=== PATIENT | female | born 1955 | race Caucasian/White ===

== ENCOUNTER 2017-08-18 10:06 | Inpatient (IN) ==
[2017-08-12 15:21] LABS: Basophils # (Auto) 0.1 K/mcL (0.0-0.3); Basophils % (Auto) 0.5 % (0.0-2.0); Eosinophils # (Auto) 0.2 K/mcL (0.0-0.7); Eosinophils % (Auto) 1.8 % (0.0-7.0); Granulocytes % (Auto) 65.1 % (38.0-78.0); Lymphocytes # (Auto) 2.6 K/mcL (1.5-4.8); Lymphocytes % (Auto) 23.6 % (15.5-49.0); Mean Cell Volume 98.9 fL (80.0-100.0); Mean Corpuscular HGB Conc 34.2 g/dL (31.0-36.0); Mean Corpuscular Hemoglobin 33.8 pg (26.0-34.0); Platelet Count 275 K/mcL (140-440); RBC 4.44 M/mcL (4.00-5.20); Red Cell Distribution Width 13.2 % (11.5-14.5)
[2017-08-12 15:21] LABS: Appearance,Urine CLEAR; Bilirubin,Urine NEG (NEG); Color,Urine YELLOW; Glucose,Urine (UA) NEGATIVE (NEG); Leukocyte Esterase,Urine NEG /uL (NEG); Nitrate,Urine NEG (NEG); Protein,Urine NEG (NEG); Specific Gravity,Urine 1.015 (1.000-1.035); Urine Blood NEG mg/dL (<0.03); Urobilinogen,Urine NEG (NEG)
[2017-08-12 16:19] LABS: Blood Urea Nitrogen 10 mg/dl (6-20)
[~2017-08-18 10:06] MED LIST: 0.9 % SODIUM CHLORIDE 250 ML IV SCH; CELECOXIB 200 MG CAPSULE PO SCH; KETOROLAC 30 MG, ROPIVACAINE HCL/PF 49.5 ML, EPINEPHrine 0.5 MG, 0.9 % SODIUM CHLORIDE ... IJ ONE; PREGABALIN 75 MG CAPSULE PO SCH; ceFAZolin 1 GM VIAL IV SCH; oxyCODONE 10 MG TAB.ER.12H PO SCH
[2017-08-18] MEDS ORDERED: ONDANSETRON 4 MG/2 ML VIAL IV ONE (11:05)
[2017-08-18] MEDS ORDERED: MIDAZOLAM 2 MG/2 ML VIAL IV ONE (11:05)
[2017-08-18] MEDS ORDERED: PROPOFOL 200 MG/20 ML VIAL IV ONE (11:05)
[2017-08-18] MEDS ORDERED: KETAMINE 100 MG/ML ML IV ONE (11:05)
[2017-08-18] MEDS ORDERED: methylPREDNISolone SOD SUCC 125 MG/2 ML VIAL IV ONE (11:05)
[2017-08-18] MEDS ORDERED: TRANEXAMIC ACID 1,000 MG/10 ML VIAL IV ONE ×2 (11:05→13:00)
[2017-08-18] MEDS ORDERED: ROPIVACAINE HCL/PF 20 ML VIAL IJ ONE (11:05)
[2017-08-18] MEDS ORDERED: LIDOCAINE HCL/PF 100 MG/5 ML SYRINGE IV ONE (11:05)
[2017-08-18] MEDS ORDERED: BENZOCAINE/MENTHOL 1 LOZENGE PO PRN ×2 (12:14→13:00)
[2017-08-18] MEDS ORDERED: METOPROLOL TARTRATE 5 MG/5 ML VIAL IV PRN (12:14)
[2017-08-18] MEDS ORDERED: fentaNYL 100 MCG/2 ML VIAL IV PRN (12:14)
[2017-08-18] MEDS ORDERED: IPRATROPIUM/ALBUTEROL 3 ML AMPUL.NEB NEB PRN (12:14)
[2017-08-18] MEDS ORDERED: MEPERIDINE 25 MG/ML SYRINGE IV PRN (12:14)
[2017-08-18] MEDS ORDERED: ONDANSETRON 4 MG/2 ML VIAL IV PRN ×2 (12:14→13:00)
[2017-08-18] MEDS ORDERED: ePHEDrine 50 MG/ML AMPUL IV PRN (12:14)
[2017-08-18] MEDS ORDERED: METHOCARBAMOL 1,000 MG/10 ML VIAL IV PRN (12:14)
[2017-08-18] MEDS ORDERED: ACETAMINOPHEN 1,000 MG/100 ML BOTTLE IV SCH (12:15)
[2017-08-18] MEDS ORDERED: LACTATED RINGERS 1,000 ML IV SCH (12:15)
[2017-08-18] MEDS ORDERED: DEXTROSE 31 GM ORAL.SUSP PO PRN (13:00)
[2017-08-18] MEDS ORDERED: BISACODYL 10 MG SUPP.RECT PR PRN (13:00)
[2017-08-18] MEDS ORDERED: MAGNESIUM HYDROXIDE 30 ML ORAL.SUSP PO PRN (13:00)
[2017-08-18] MEDS ORDERED: DEXTROSE 50% 50 ML VIAL IV PRN (13:00)
[2017-08-18] MEDS ORDERED: FLEETS ADULT ENEMA PR PRN (13:00)
[2017-08-18] MEDS ORDERED: HYDROmorphone 2 MG/ML SYRINGE IV PRN (13:00)
[2017-08-18] MEDS ORDERED: POLYETHYLENE GLYCOL 3350 17 GM PACKET PO PRN (13:00)
--- NOTE | 2017-08-18 13:00 | Brief Operative Note ---
Date of procedure: 08/18/17 Pre-op diagnosis: R knee severe DJD Post-op diagnosis: same Procedure: Right robotic assisted total knee arthroplasty Grafts/Implants: Yes (Erwin CR 4 femur, 4 tibia, 9mm insert, 33 patella) Anesthesia: spinal, GLMA Findings: tricompartmental arthritis Complications: none Surgeon: Ravinder Ureña Welding Machine Operator: Bryce Hagan Estimated blood loss (cc): 30 Specimens Removed/Pathology: none sent Condition: stable Disposition: PACU
[2017-08-18] MEDS: 0.9 % SODIUM CHLORIDE 10 ML SYRINGE IV SCH ×2 (14:55→22:08)
--- NOTE | 2017-08-18 14:57 | XRay Report ---
CLINICAL INFORMATION: Postop total knee prostheses COMPARISON: None. FINDINGS: Total knee prostheses is anatomically aligned. No osseous abnormality. Periarticular soft tissue swelling and gas seen IMPRESSION: Negative Interpreted and Authenticated by: João Zuñiga 08/18/17
[2017-08-18] MEDS: KETOROLAC 30 MG/ML VIAL IV SCH (16:59)
[2017-08-18] MEDS: 0.9 % SODIUM CHLORIDE 1,000 ML IV SCH (17:00)
[2017-08-18] MEDS: INSULIN LISPRO 1 UNIT/0.01 ML UNIT SQ SCH ×2 (17:06→21:58)
[2017-08-18] MEDS: HYDROcodone/APAP 10/325MG TABLET PO PRN ×2 (17:57→21:53)
[2017-08-18] MEDS: ceFAZolin 1 GM VIAL IV SCH (18:50)
[2017-08-18] MEDS ORDERED: SENNOSIDES 1 TABLET PO SCH (21:00)
[2017-08-18] MEDS: DOCUSATE SODIUM 100 MG CAPSULE PO SCH (21:53)
[2017-08-18] MEDS: ASPIRIN 325 MG ENTERIC COATED TABLET PO SCH (21:53)
[2017-08-18] MEDS: FLUTICASONE/SALMETEROL 250/50 INHALER #14 INH SCH (22:08)
[2017-08-19] MEDS: KETOROLAC 30 MG/ML VIAL IV SCH ×3 (00:32→12:12)
[2017-08-19] MEDS: 0.9 % SODIUM CHLORIDE 1,000 ML IV SCH ×2 (00:46→09:03)
[2017-08-19] MEDS: HYDROcodone/APAP 10/325MG TABLET PO PRN ×3 (02:39→10:38)
[2017-08-19] MEDS: ceFAZolin 1 GM VIAL IV SCH (02:45)
[2017-08-19] MEDS: 0.9 % SODIUM CHLORIDE 10 ML SYRINGE IV SCH (05:55)
[2017-08-19] MEDS: INSULIN LISPRO 1 UNIT/0.01 ML UNIT SQ SCH ×2 (06:47→12:15)
--- NOTE | 2017-08-19 07:45 | Discharge Summary ---
Providers - Providers Patient information: Note initiated : 08/19/17 at 7:41 am Service Date, if different from initiated Date: [] Patient: Pia Baron 61 y/o F admitted on 08/18/17 for Right Uni Medial Reza Knee vs Total Knee Arthropla. Chief Complaint: [] Discharge date: 08/19/17 Hospitalization Hospital course: Pt was admitted for a total knee arthroplasty and underwent the procedure on the day of admission. She spent one night on the floor for IV pain meds, IV abx and PT. She was discharged on post-op day one with appropriate pain meds and aspirin for DVT prophylaxis. She will f/u at [facility] in 10-14 days and will call with any questions or concerns. Discharge diagnosis: R knee osteoarthrosis Exam - Exam Clean and dry: Yes Weight bearing status: as tolerated Ortho Discharge - TKA - Patient Instructions Diet: Regular Diet Activity: activity as tolerated Total Knee Protocol: For Total Knee: Start ROM GEOVANI with stationary bike or rocking chair. Work on gaining full extension of knee. Posterior dislocation precautions provided. Hip abductor strengthening and gait training instructions provided. Apply Cryocuff as instructed. Dressing Care: May shower in 2 days - Follow Up Plan Follow Up Appointments: Ravinder Ureña MD [Physician] - 09/03/17 10:40 am Bryce Hagan PA-C [Physician Curing Machine Operator] - Disposition: Home, Self-Care Prognosis: Good Rehab Potential: Good Overall status at discharge: patient is progressing back to baseline - Orders For Discharge Prescriptions: Aspirin 325 mg PO BID #30 tab oxyCODONE HCL/ACETAMINOPHEN [Endocet 5-325 Tablet] 1 - 2 each PO Q4H PRN #90 tab PRN Reason: Pain Pending Studies Resuscitation Status Full Code Diet Consistent Carbohydrate Diet Start ThuAug 18 Dinner Hydrocodone Bitart/Acetaminophen ([place] 10/325mg) 0 tab PO Q4HP PRN PRN Reason: Pain Last Admin: 08/19/17 06:49 Dose: 2 tab Admin: 08/19/17 02:39 Dose: 2 tab Admin: 08/18/17 21:53 Dose: 2 tab Admin: 08/18/17 17:57 Dose: 2 tab Aspirin (Ecotrin) 325 mg PO BID ERUM Last Admin: 08/18/17 21:53 Dose: 325 mg Diagnostic Test (Pha) (Accu-Chek) 1 each FS ACHS [facility] Last Admin: 08/19/17 06:46 Dose: 1 each Admin: 08/18/17 21:53 Dose: 1 each Admin: 08/18/17 17:03 Dose: 1 each Docusate Sodium (Colace) 100 mg PO BID [facility] Last Admin: 08/18/17 21:53 Dose: 100 mg Hydromorphone HCl (Dilaudid) 0 mg IV Q2HP PRN PRN Reason: Pain Last Admin: 08/19/17 02:40 Dose: 1 mg Sodium Chloride (Sodium Chloride 0.9%) 1,000 mls @ 100 mls/hr IV .Q10H [facility] Last Admin: 08/19/17 00:46 Dose: Not Given Admin: 08/18/17 17:00 Dose: 100 mls/hr Insulin Human Lispro (Humalog) 0 unit SQ ACHS [facility] PRN Reason: Protocol Last Admin: 08/19/17 06:47 Dose: Not Given Admin: 08/18/17 21:58 Dose: 6 unit Admin: 08/18/17 17:06 Dose: 4 unit Ketorolac Tromethamine (Toradol) 30 mg IV Q6 [facility] Stop: 08/20/17 12:01 Last Admin: 08/19/17 05:46 Dose: 30 mg Admin: 08/19/17 00:32 Dose: 30 mg Admin: 08/18/17 16:59 Dose: 30 mg Fluticasone/Salmeterol (Advair 250-50 Diskus) 1 puff INH BID [facility] Last Admin: 08/18/17 22:08 Dose: 1 puff Senna (Senokot) 2 tab PO HS [facility] Last Admin: 08/18/17 21:53 Dose: 2 tab Sodium Chloride (Saline Flush) 10 ml IV Q8 [facility] Last Admin: 08/19/17 05:55 Dose: 10 ml Admin: 08/18/17 22:08 Dose: Not Given Admin: 08/18/17 14:55 Dose: Not Given Shift Summary 08/19/17 03:43 Shift Summary by Natasha Maxwell Pt A&O, up with SBA and FWW. Ambulating to BR, voiding adequate amts. IV to left hand SL. 2Norco 10s given Q4. 1mg Dilaudid given for breakthrough pain. Pt hasn't slept all night. VSS on RA. Brad wrap to right leg CDI. Ice used, AV boots on, CMS intact. Pt would like to DC today. Initialized on 08/19/17 03:43 - END OF NOTE
[2017-08-19] MEDS: ASPIRIN 325 MG ENTERIC COATED TABLET PO SCH (08:59)
[2017-08-19] MEDS: DOCUSATE SODIUM 100 MG CAPSULE PO SCH (08:59)
[2017-08-19] MEDS ORDERED: FLUoxetine HCL 20 MG CAPSULE PO SCH (09:00)
[2017-08-19] MEDS ORDERED: LISINOPRIL 10 MG TABLET PO SCH (09:00)
[2017-08-19] MEDS: FLUTICASONE/SALMETEROL 250/50 INHALER #14 INH SCH (09:00)
[2017-08-19] MEDS ORDERED: HYDROCHLOROTHIAZIDE 12.5 MG CAPSULE PO SCH (09:00)
--- NOTE | 2017-08-19 09:10 | Operative Note ---
DATE OF OPERATION: 08/18/2017 PREOPERATIVE DIAGNOSIS: Right knee probable bicompartmental severe osteoarthritis. POSTOPERATIVE DIAGNOSIS: Right knee severe tricompartmental osteoarthritis. PROCEDURE PERFORMED: Right robotic-assisted total knee arthroplasty with a [place] size 4 cruciate retaining femoral component, size 4 tibial baseplate, 9 mm insert with a 33 mm patellar button. SURGEON: Ravinder Ureña MD. EXPERT MEDICAL WRITER: Celso Hagan PA-C. ANESTHESIA: Spinal plus general. DRAINS: None. SPECIMENS: Bone cuts, which were discarded. BLOOD LOSS: 30 mL. COMPLICATIONS: None. POSTOPERATIVE CONDITION: Stable. INDICATIONS FOR SURGERY: This is a 61-year-old female who has had longstanding knee pain. Radiographs showed severe [id number] medial compartment osteoarthritis with what appeared to be probable significant patellofemoral arthritis. FINDINGS AT SURGERY: She had full-thickness cartilage loss off of all three compartments. Post implantation showed good limb alignment and stability with good patellar tracking. PROCEDURE IN DETAIL: The patient had been seen preoperatively. Informed consent had been obtained after discussion of risks and benefits of surgery. Risks including, but not limited to, bleeding, possibly requiring transfusion; infection, possibly requiring implant removal and prolonged IV antibiotics; injury to nerves, blood vessels, and other surrounding structures; anesthetic risks; stiffness; pain; instability; swelling; clunking; DVT and pulmonary embolus risks; and the possibility of needing further revision surgery. She understood these risks and wished to proceed. Correct operative site was marked in preoperative holding, and patient received spinal anesthesia, and then was taken to the operating room. LMA general was given. The right lower extremity was carefully prepped and draped in normal sterile fashion, and a time-out was performed verifying patient name, operative site, and plan. Esmarch was used to exsanguinate the extremity and tourniquet was inflated to 300 mmHg. Midline incision was made with a scalpel through skin and subcutaneous tissue and then hemostasis obtained with Bovie cautery. Irrisept was irrigated and then a medial parapatellar arthrotomy made. Subperiosteal exposure was done of the anterior medial tibia, and then we did a full inspection of the knee. At this point, we determined she was not a candidate for partial knee and elected to proceed with a total knee arthroplasty. Two stab incisions were made over the tibia and two over the femur, and then bicortical pins were placed and the arrays were connected. Femoral and tibial check points were placed. Hip center of rotation was checked, as well as medial and lateral malleoli with a green probe. We double-checked the femoral checkpoint and tibial checkpoint and then used the blue probe to do our data point entry. Once this was completed, we removed osteophytes with a rongeur. We did resect the ACL, as well as the anterior horns of the menisci. The spoons were then used to check our flexion and extension gap. We then proceeded to do our surgical planning, adjusting implants to get 17 mm flexion-extension gap all the way around. Once we liked our plan, we used the robotic assistance to make our femoral and tibial bone cuts. We marked our tibial rotation using the green probe and then the tibia was prepared with the boss reamer and keel punch. A keeled tibial trial was placed. The femur was elevated, and we removed posterior osteophytes with a curved osteotome. We then went ahead and placed our femur trial, drilled our peg holes. A 9 trial insert was placed, and the knee was checked through range of motion which was very good. We went ahead and made our patellar cut, then drilled the holes and placed the patellar trial. A lateral facetectomy was performed, and the knee was taken through range of motion. Patella tracked well, so we went ahead and removed trial implants. Definitive implants were opened. We irrigated with Irrisept. Antibiotic cement was mixed. We then pulse lavaged with saline and then used the CO2 gun to clean and dry the cut bone surface. We then cemented the tibia followed by the femur. Trial insert was placed, and the knee was taken into extension, and the patella was cemented. The joint was filled with Irrisept, and while cement was hardening we injected pain cocktail. Once the cement had fully hardened, we flexed the knee up, removed the trial insert. Definitive insert was opened. Remaining of the pain cocktail was injected in the posterior capsule and then Irrisept was irrigated again and the insert was impacted. We did a final pulse lavage and then #1 Vicryl [id number] were used around the patella and running #1 Vicryl for patellar tendon and quad tendon. A final Irrisept irrigation was done and then after a minute final pulse lavage, and 2-0 Monocryl for subcutaneous and jem for skin. We did remove the checkpoints prior to closure. The pins were removed for the arrays. Xeroform and sterile dressing were applied. Tourniquet was released. The patient was awakened, extubated, and transferred to recovery in stable condition. TIARA:[email or web address] Job ID: [id number] Doc ID: [id number] Ravinder Ureña MD
[2017-08-19] MEDS ORDERED: FLU VACC QS2017-18 36MOS UP/PF 60 MCG/0.5 ML SYRINGE IM ONE (10:00)
== END 2017-08-19 13:30 | disposition home or self-care (01) | DRG 470 ==
LOC: SUR 10:06 → MEDSUR 14:16
PROVIDERS: ADMIT Orthopaedic Surgery; ATTEND Orthopaedic Surgery